=== PATIENT | male | born 1970 | race Caucasian/White ===

== ENCOUNTER 2017-08-08 13:29 | Emergency (ER) | payer OTHER ==
[~2017-08-08] VITALS: Ht 188 cm; Wt 120.2 kg
[~2017-08-08 13:29] MED LIST: TEGRETOL XR200 MG PO; TEGRETOL XR400 MG PO
[2017-08-08] MEDS ORDERED: NORCO 5-325 TA1 EACH PO (14:25)
[2017-08-08] MEDS ORDERED: IBUPROFEN 600600 M1 PO (14:25)
== END 2017-08-08 14:57 | disposition home or self-care (01) ==
LOC: ER 13:29
DX: M25.512 Pain in left shoulder (principal); F17.210 Nicotine dependence, cigarettes, uncomplicated; G40.909 Epilepsy, unspecified, not intractable, without status epilepticus

== ENCOUNTER 2020-09-18 09:30 | Emergency (ER) | payer OTHER ==
[~2020-09-18] VITALS: Ht 188 cm; Wt 129.3 kg
[~2020-09-18 09:30] MED LIST changes: +IBUPROFEN 600600 M1 PO; +NORCO 5-325 TA1 EACH PO
[2020-09-18] MEDS ORDERED: HYDROCODON-ACE1 EAC7 PO (09:58)
[2020-09-18] MEDS ORDERED: PREDNISONE50 MG PO (09:58)
[2020-09-18 10:13] VITALS: BP 136/68
== END 2020-09-18 10:13 | disposition home or self-care (01) ==
LOC: ER 09:30
DX: M25.561 Pain in right knee (principal); F17.210 Nicotine dependence, cigarettes, uncomplicated; Z79.899 Other long term (current) drug therapy

== ENCOUNTER 2020-12-18 10:26 | Emergency (ER) | payer OTHER ==
[~2020-12-18] VITALS: Ht 188 cm; Wt 127.0 kg
[~2020-12-18 10:26] MED LIST changes: +HYDROCODON-ACE1 EAC7 PO; +PREDNISONE50 MG PO
[2020-12-18] MEDS ORDERED: HYDROCODON-ACE1 EAC7 PO (11:23)
[2020-12-18] MEDS ORDERED: PREDNISONE 20 M20 MG PO (11:23)
[2020-12-18 11:30] VITALS: BP 140/55
== END 2020-12-18 11:55 | disposition home or self-care (01) ==
LOC: ER 10:26
DX: M25.561 Pain in right knee (principal); F17.210 Nicotine dependence, cigarettes, uncomplicated; G40.909 Epilepsy, unspecified, not intractable, without status epilepticus; Z79.899 Other long term (current) drug therapy; W18.30XA Fall on same level, unspecified, initial encounter; Y93.89 Activity, other specified; Y92.89 Other specified places as the place of occurrence of the external cause; Y99.9 Unspecified external cause status